=== PATIENT | male | born 1995 | race Caucasian/White ===

== ENCOUNTER → 2020-01-20 | Outpatient (CLI) | payer OTHER ==
--- NOTE | 2020-01-20 12:24 | REP ---
INDICATION: DYSPNEA, UNSPECIFIED COMPARISON: None. TECHNIQUE: PA and lateral. FINDINGS: The mediastinum and cardiac silhouette are normal. The lung [place] are clear and without acute consolidation, effusion, or pneumothorax. The skeletal structures are intact and normal. IMPRESSION: No acute cardiopulmonary process. <Electronically signed by Kyle Patton > 01/20/20 [id number]
== END ==
LOC: M RAD 11:55
PROVIDERS: ATTEND Physician Assistant
DX: R06.00 Dyspnea, unspecified (principal)

== ENCOUNTER → 2020-03-23 | Outpatient (CLI) | payer OTHER ==
[~2020-03-23] MED LIST: METHACHOLINE KIT (J7674) INH ONE
--- NOTE | 2020-03-23 10:07 | PFTRPT ---
Height: 72.00 Inches Weight: 265.00 Lbs BSA: 2.40 Diagnosis: R06.00 DATE: 03/23/2020 ORDERED BY: SPENCER Ross QUALITY: Study of excellent technical quality. PROCEDURE: Under protocol, methacholine was administered. At a dose of 25 mg or 188.875 CDUs, a 24% decline in the FEV1 was noted, but a PC of 17.55 does not meet diagnostic criteria. Flow rates did return to baseline post bronchodilator administration. IMPRESSION: Nondiagnostic methacholine challenge study. Please correlate clinically. MTDD
== END ==
LOC: M CARPUL 08:23
PROVIDERS: ATTEND Physician Assistant
DX: R06.00 Dyspnea, unspecified (principal)
CPT/HCPCS: 94070; J7674